=== PATIENT | female | born 1990 | race Caucasian/White ===

== ENCOUNTER → 2016-10-10 | Day surgery (SDC) | payer BC, OTHER ==
[~2016-10-10] MED LIST: ACETAMINOPHEN 1000 MG/100 ML VIAL IV ONE; BACITRACIN IM FOR SOLN 50,000 UNIT VIAL ONE; BUPIVACAINE/EPINEPHRINE 0.25% PF 30 ML VIAL ONE; GENTAMICIN SULFATE 80 MG/2 ML VIAL ONE; KETOROLAC TROMETHAMINE 30 MG/ML (IVP) VIAL IV PUSH ONE; LACTATED RINGER'S 1000 ML INJ 1,000 ML ONE; LIDOCAINE 1%/EPINEPHrine 1:100,000 SOLN 20 ML VIAL ONE; MEDR4PAK3 PO; MEPERIDINE HCL 25 MG/ML VIAL ONE; MIDAZOLAM HCL 2 MG/2 ML VIAL ONE; ONDANSETRON HCL 4 MG/2 ML VIAL IV PUSH ONE; PROPOFOL 200 MG/20 ML AMP IV ONE; SODIUM CHLORIDE 0.9% 20 ML VIAL ONE; Z.0.BCPILL PO; ceFAZolin INJ 1,000 MG VIAL ONE
--- NOTE | 2016-10-10 12:29 | TN ---
cc: GIOVANNY MANLEY M.D. DATE OF SURGERY 10/10/2016 PREOPERATIVE DIAGNOSIS Wishes breast enhancement. POSTOPERATIVE DIAGNOSIS Wishes breast enhancement. PROCEDURE Bilateral augmentation mammoplasty SURGEON Giovanny Manley MD ANESTHESIA LMA general plus a breast block a total of 60 cc of 1% lidocaine with epinephrine mixed with 0.25% Marcaine in a 2:1 ratio IMPLANT DATA PLACEMENT AND TECHNIQUE Inframammary retroperitoneal saline style 68 high-profile volume applied 380 cc, serial number of the right breast implant device [id number] and to the left implant serial number [id number] Again, both were filled to 380 cc PROCEDURE IN DETAIL She was properly consented, marked, properly anesthetized. The skin was sterilized with Betadine solution and sterile draping applied. Through a 3-1/2 to 4 cm inframammary incision, the retroperitoneal plane was properly developed and utilizing electrocautery, the inferomedial fibers were released. After assuring meticulous hemostasis, the pocket was irrigated with antibiotic solution and the skin was isolated with Tegaderm. At this point, the partially expanded implant was introduced and then expanded to the above-mentioned volumes. The patient was sat up, blunt touch-ups and volume touches were done to achieve best symmetry possible. Assuring that, the ports were removed and the wounds were closed in multiple 2-0 Monocryl suture layers in the José Miguel fascia dermis and subcu. After Mastisol, Steri-Strips were applied and a snug brassiere after that. Overall, the patient tolerated the procedure well. She was awakened and extubated in the operating room and transferred back to the postanesthesia care unit in stable condition. No complications were appreciated. The patient tolerated the procedure fairly well. MD MARSHALL Ambriz/IRVING /12:18 PM /12:24 PM
== END | disposition home or self-care (01) ==
LOC: ESDC 09:21
PROVIDERS: ATTEND Plastic Surgery
DX: Z41.1 Encounter for cosmetic surgery (principal)
CPT/HCPCS: 00402; 19325; C1789; J0131; J0690; J1580; J1885; J2175; J2250; J2405; J3010; J7120